=== PATIENT | male | born 2000 | race Caucasian/White ===

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

== ENCOUNTER → 2023-11-06 | Outpatient (CLI) | payer OTHER | LOC: M RAD 12:24 | PROVIDERS: ATTEND Nurse Practitioner Family | DX: Z00.01 Encounter for general adult medical examination with abnormal findings (principal); N50.3 Cyst of epididymis ==

== ENCOUNTER → 2024-02-11 | Outpatient (REF) | payer OTHER ==
[2024-02-11 12:45] LABS: APPEARANCE, URINE CLEAR (CLEAR); BACTERIA, URINE AUTO NEGATIVE (NEGATIVE); BILIRUBIN, URINE AUTO NEGATIVE (NEGATIVE); BLOOD, URINE BLOOD NEGATIVE (NEGATIVE); COLOR, URINE YELLOW (YELLOW); GLUCOSE, URINE (UA) AUTO NEGATIVE (NEGATIVE); KETONE, URINE AUTO NEGATIVE (NEGATIVE); LEUKOCYTE ESTERASE, URINE AUTO NEGATIVE (NEGATIVE); MUCUS, URINE SMALL (NEGATIVE); NITRITE, URINE AUTO NEGATIVE (NEGATIVE); PROTEIN, URINE AUTO 1+ mg/dL (NEGATIVE); RBC, URINE AUTO 0 /HPF (0-3); SPECIFIC GRAVITY URINE AUTO 1.026 (1.002-1.035); SQUAMOUS EPITHELIAL CELL UR AU 0 /HPF (0-6); UROBILINOGEN, URINE AUTO 0.2 mg/dL (0.0-2.0); WBC, URINE AUTO 0 /HPF (0-3)
== END ==
LOC: M SMT 12:03
PROVIDERS: ATTEND Urology
DX: N50.3 Cyst of epididymis (principal)

== ENCOUNTER 2024-03-24 11:17 | Day surgery (SDC) | payer OTHER ==
[~2024-03-24] VITALS: Ht 160 cm; Wt 79.3 kg
[~2024-03-24 11:17] MED LIST: ACETAMINOPHEN 1000MG 100ML IV BAG As Ordered ONE; LIDOCAINE 2% 100MG/5ML SDV (FOR ANES.) As Ordered ONE; MIDAZOLAM INJ 2MG/2ML VIAL As Ordered ONE; ONDANSETRON 4MG 2ML VIAL As Ordered ONE; fentaNYL 100 MCG/2 ML INJECTION As Ordered ONE; propofoL 200 MG/20 ML VIAL As Ordered ONE
[2024-03-24] MEDS ORDERED: LR 1,000 ML IV SCH (11:50)
[2024-03-24] MEDS: ceFAZolin SOD 2 GM in IV 1 EA IV ONE (13:08)
[2024-03-24] MEDS ORDERED: dexmedeTOMIDine (4MCG/ML)200MCG/50ML BTL (PRECEDEX) As Ordered ONE (13:18)
[2024-03-24] MEDS: BACITRACIN OINTMENT 30GM TUBE As Ordered ONE (13:54)
[2024-03-24] MEDS ORDERED: oxyCODONE 5MG TAB PO PRN (14:00)
[2024-03-24] MEDS ORDERED: fentaNYL 100 MCG/2 ML INJECTION IV PRN (14:00)
[2024-03-24] MEDS: LIDOCAINE 1% SDV 30ML VIAL As Ordered ONE (14:05)
[2024-03-24] MEDS ORDERED: CEPH500C PO (14:14)
[2024-03-24] MEDS ORDERED: HYDR-3713 PO (14:14)
[2024-03-24] MEDS: HYDROMORPHONE HCL 0.5 MG/ 0.5 ML SYRINGE IV PRN (14:34)
[2024-03-24] MEDS: ONDANSETRON 4MG 2ML VIAL IV PRN (14:57)
[2024-03-24 15:25] VITALS: BP 151/90; TEMP 97.7; O2SAT 99
== END 2024-03-24 16:00 | disposition home or self-care (01) ==
LOC: M SDC 11:17
PROVIDERS: ATTEND Urology
DX: N50.3 Cyst of epididymis (principal); N43.3 Hydrocele, unspecified; F17.200 Nicotine dependence, unspecified, uncomplicated
CPT/HCPCS: 54640; 54830; 55040; 88304; J0131; J0665; J0690; J1170; J2250; J2405; J3010